=== PATIENT | female | born 1990 | race Caucasian/White ===

== ENCOUNTER 2018-02-23 17:24 | Emergency (ER) | payer SELFPAY ==
[~2018-02-23] VITALS: Ht 157.5 cm; Wt 59.0 kg
[2018-02-24] MEDS ORDERED: BACITRACIN ZINC OINT UDPKT TOP ONE (03:30)
[2018-02-24 04:22] VITALS: BP 104/62
== END 2018-02-24 04:15 | disposition home or self-care (01) ==
LOC: ER 17:24
DX: T20.211A Burn of second degree of right ear [any part, except ear drum], initial encounter (principal); T28.411A Burn of right ear drum, initial encounter; T24.202A Burn of second degree of unspecified site of left lower limb, except ankle and foot, initial encounter; F17.200 Nicotine dependence, unspecified, uncomplicated; X04.XXXA Exposure to ignition of highly flammable material, initial encounter; Y93.89 Activity, other specified; Y92.9 Unspecified place or not applicable
CPT/HCPCS: 16020; 99284